=== PATIENT | male | born 1975 | race American Indian/Alaskan Native ===

== ENCOUNTER 2019-02-09 21:14 | Emergency (ER) | payer OTHER ==
--- NOTE | 2019-02-09 22:21 | Emergency Department Report ---
Chief Complaint: Chest Pain Stated Complaint: TIGHTNESS IN CHEST SOB Time Seen by Provider: 02/09/19 22:14 - HPI History of Present Illness: pt presents with sore throat three days hurts to swallow, fever pt denies any sick contact MSE screening note: Focused history and physical exam performed. Due to findings the following was ordered: rapid strep ED Disposition for MSE Condition: Stable
[2019-02-09 22:22] VITALS: BP 137/84
[2019-02-10] MEDS ORDERED: TYLENOL PO ONE (00:40)
[2019-02-10] MEDS ORDERED: DECADRON IM ONE (00:55)
[2019-02-10] MEDS ORDERED: BICILLIN L-A IM ONE (00:57)
--- NOTE | 2019-02-10 02:54 | Emergency Department Report ---
ED ENT HPI - General Chief complaint: Chest Pain Stated complaint: TIGHTNESS IN CHEST SOB Time Seen by Provider: 02/09/19 22:14 Source: patient Mode of arrival: Ambulatory Limitations: No Limitations - History of Present Illness Initial comments: pt presents with sore throat three days hurts to swallow, fever pt denies any sick contact MD complaint: sore throat Location: R ear Severity: moderate Severity scale (0 -10): 5 Quality: stabbing Consistency: constant (all move the) Improves with: none (is) Worsens with: none Context- Ear: recent illness Associated Symptoms: fever, pain with swallowing, sore throat, rhinorrhea - Related Data Previous Rx's Medication Instructions Recorded Last Taken Type Benzocaine/Menth/Cetylpyrd 8 each MM Q2H PRN #30 packet 02/10/19 Unknown Rx [Cepacol X Strength] Ibuprofen 800 mg PO TID #30 tablet 02/10/19 Unknown Rx Allergies Allergy/AdvReac Type Severity Reaction Status Date / Time No Known Allergies Allergy Verified 02/10/19 01:16 ED Dental HPI - General Chief complaint: Chest Pain Stated complaint: TIGHTNESS IN CHEST SOB Time Seen by Provider: 02/09/19 22:14 Source: patient Mode of arrival: Ambulatory Limitations: No Limitations - Related Data Previous Rx's Medication Instructions Recorded Last Taken Type Benzocaine/Menth/Cetylpyrd 8 each MM Q2H PRN #30 packet 02/10/19 Unknown Rx [Cepacol X Strength] Ibuprofen 800 mg PO TID #30 tablet 02/10/19 Unknown Rx Allergies Allergy/AdvReac Type Severity Reaction Status Date / Time No Known Allergies Allergy Verified 02/10/19 01:16 ED Review of Systems ROS: Stated complaint: TIGHTNESS IN CHEST SOB Other details as noted in HPI Constitutional: denies: chills, fever Eyes: denies: eye pain, eye discharge, vision change ENT: denies: ear pain, throat pain Respiratory: no symptoms reported Cardiovascular: denies: chest pain, palpitations Endocrine: no symptoms reported, excessive sweating Gastrointestinal: denies: abdominal pain, nausea, diarrhea Genitourinary: as per HPI Musculoskeletal: denies: back pain, joint swelling, arthralgia Skin: denies: rash, lesions Neurological: denies: headache, weakness, paresthesias Psychiatric: denies: anxiety, depression Hematological/Lymphatic: denies: easy bleeding, easy bruising ED Past Medical Hx - Past Medical History Previous Medical History?: No - Surgical History Past Surgical History?: No - Social History Smoking Status: Never Smoker Substance Use Type: None - Medications Home Medications: Home Medications Medication Instructions Recorded Confirmed Last Taken Type Benzocaine/Menth/Cetylpyrd 8 each MM Q2H PRN #30 packet 02/10/19 Unknown Rx [Cepacol X Strength] Ibuprofen 800 mg PO TID #30 tablet 02/10/19 Unknown Rx ED Physical Exam - General Limitations: No Limitations General appearance: alert, in no apparent distress - Head Head exam: Present: atraumatic, normocephalic, normal inspection - Eye Eye exam: Present: normal appearance, PERRL, EOMI Pupils: Present: normal accommodation - ENT ENT exam: Present: normal exam, mucous membranes moist, TM's normal bilaterally, normal external ear exam - Expanded ENT Exam Expanded Throat exam: Positive: tonsillar erythema, tonsillomegaly, tonsillar exudate, R peritonsillar mass, L peritonsillar mass, other - Neck Neck exam: Present: normal inspection, tenderness, full ROM. Absent: lymphadenopathy, thyromegaly - Respiratory Respiratory exam: Present: normal lung sounds bilaterally, chest wall tenderness. Absent: respiratory distress, wheezes, rales, rhonchi, stridor - Cardiovascular Cardiovascular Exam: Present: regular rate, normal rhythm, normal heart sounds. Absent: systolic murmur, diastolic murmur, rubs, gallop - GI/Abdominal GI/Abdominal exam: Present: soft, normal bowel sounds. Absent: tenderness, guarding, organomegaly, bruit, pulsatile mass, hernia - Rectal Rectal exam: Present: deferred - exam: Present: normal inspection, other (deferred vietnmempatien ) External exam: Present: normal external exam - Extremities Exam Extremities exam: Present: normal inspection - Back Exam Back exam: Present: normal inspection, full ROM. Absent: CVA tenderness (L), muscle spasm, paraspinal tenderness - Neurological Exam Neurological exam: Present: alert, oriented X3, CN II-XII intact, normal gait, reflexes normal. Absent: motor sensory deficit - Psychiatric Psychiatric exam: Present: normal affect, normal mood, depressed, flat affect, manic - Skin Skin exam: Present: warm, dry, intact, normal color. Absent: rash, cyanosis, diaphoretic, erythema, petechiae, pallor, abrasion, ecchymosis, other - Expanded Skin Exam Expanded Type of lesion: Present: rash Distribution of rash: involves palms/soles Description of rash: Present: size, blisters ED Course Vital Signs 02/09/19 22:20 Temperature 99.9 F H Pulse Rate 106 H Respiratory 18 Rate Blood Pressure 137/84 O2 Sat by Pulse 96 Oximetry - Reevaluation(s) Reevaluation #1: plan bicmaged mantillayu 02/10/19 02:59 snow v/s now read it col d sa 02/10/19 03:01 ED Medical Decision Making - EKG Data -: EKG Interpreted by Me Rate: bradycardia - EKG Data When compared to previous EKG there are: no significant change Interpretation: normal EKG (ekg interp by ed attending n fracture no [id number] ) - Medical Decision Making This is pharyngitis plan bicillin im decadron ibuprofen follow up with pcp in 2-3 days return to ed if symptoms worsen pt verbalized agreement and unerstanding with discharge plan. pt will follow up with pcp in 2-3 days. Critical care attestation.: If time is entered above; I have spent that time in minutes in the direct care of this critically ill patient, excluding procedure time. ED Disposition Clinical Impression: Pharyngitis Qualifiers: Pharyngitis/tonsillitis etiology: unspecified etiology Qualified Code(s): J02.9 - Acute pharyngitis, unspecified Disposition: - TO HOME OR SELFCARE Is pt being admited?: No Does the pt Need Aspirin: No (all) Condition: Stable Instructions: Pharyngitis (ED) Prescriptions: Benzocaine/Menth/Cetylpyrd [Cepacol X Strength] 8 each MM Q2H PRN #30 packet PRN Reason: throatpain Ibuprofen 800 mg PO TID #30 tablet Referrals: PRIMARY CARE, [Primary Care Provider] - 3-5 Days Forms: Work/School Release Form(ED)
--- NOTE | 2019-02-10 03:07 | Emergency Department Report ---
HPI - General Chief Complaint: Chest Pain Time Seen by Provider: 02/09/19 22:14 - HPI HPI: This 43-year-old male who presents for throat pain 3 days and Zestril S remaining pain relieved on 9 patient is taking for the last rash medications question there is no stridor no wheezing or shortness of breath no headache. ED Past Medical Hx - Past Medical History Previous Medical History?: No Hx Renal Disease: Yes Hx of Cancer: Yes Hx Sickle Cell Disease: Yes - Surgical History Past Surgical History?: No - Social History Smoking Status: Never Smoker Substance Use Type: None ED Review of Systems ROS: Stated complaint: TIGHTNESS IN CHEST SOB Other details as noted in HPI Constitutional: denies: chills, fever Eyes: denies: eye pain, eye discharge, vision change ENT: throat pain. denies: ear pain Respiratory: no symptoms reported, cough. denies: shortness of breath, wheezing Cardiovascular: denies: chest pain, palpitations Endocrine: no symptoms reported, excessive sweating Gastrointestinal: denies: abdominal pain, nausea, diarrhea Genitourinary: as per HPI Musculoskeletal: denies: back pain, joint swelling, arthralgia Skin: denies: rash, lesions Neurological: denies: headache, weakness, paresthesias Psychiatric: denies: anxiety, depression Hematological/Lymphatic: denies: easy bleeding, easy bruising Physical Exam - Physical Exam Vital Signs: Vital Signs 02/09/19 22:20 Temperature 99.9 F H Pulse Rate 106 H Respiratory 18 Rate Blood Pressure 137/84 O2 Sat by Pulse 96 Oximetry ED Course Vital Signs 02/09/19 22:20 Temperature 99.9 F H Pulse Rate 106 H Respiratory 18 Rate Blood Pressure 137/84 O2 Sat by Pulse 96 Oximetry Critical care attestation.: If time is entered above; I have spent that time in minutes in the direct care of this critically ill patient, excluding procedure time. ED Disposition Condition: Stable Referrals: PRIMARY CARE, [Primary Care Provider] - 3-5 Days
== END 2019-02-10 03:35 | disposition home or self-care (01) ==
LOC: ED 21:14
DX: J02.9 Acute pharyngitis, unspecified (principal)
CPT/HCPCS: 87116; 87430; 93005; 93010; 96372; 99283; J0561; J1100